=== PATIENT | male | born 2000 | race Caucasian/White ===

== ENCOUNTER 2018-07-11 13:50 | Emergency (ER) | payer OTHER ==
[2018-07-11] MEDS ORDERED: NS(*) 0.9% 1000 ML BAG 1,000 ML IV ONE ×2 (13:51→14:10)
[2018-07-11] MEDS ORDERED: KETAMINE HCL 500 MG/5 ML VIAL IVP ONE ×3 (13:55→15:05)
--- NOTE | 2018-07-11 14:31 | ER Report ---
History and Physical Time Seen By MD: 14:30 Hx. of Stated Complaint: left arm pain HPI/ROS CHIEF COMPLAINT: Left humerus fracture HISTORY OF PRESENT ILLNESS: Patient is a 17-year-old male here with complaints of pain after a fall while snowboarding of his left mid humerus. Patient is neurovascularly intact in distal extremity. Patient was brought in by EMS having received fentanyl, ketamine, Versed. Patient has no other injuries at this time, denies loss of consciousness. Patient is afebrile, hemodynamically stable REVIEW OF SYSTEMS: Constitutional: No fever, no chills. Eyes: No discharge. ENT: No sore throat. Cardiovascular: No chest pain, no palpitations. Respiratory: No cough, no shortness of breath. Gastrointestinal: No abdominal pain, no vomiting. Genitourinary: No hematuria. Musculoskeletal: + Mid humerus left upper extremity deformity Skin: No rashes. Capillary refill less than 2 seconds in distal extremity Neurological: Neurovascular exam intact distal to the injury site Allergies: Coded Allergies: No Known Allergies (Verified Allergy, Unknown, 07/11/18) Home Meds Active Scripts Ondansetron 4 Mg Odt (ONDANSETRON 4 MG ODT) 4 Mg Tab.rapdis, 4 MG PO ONCE, #30 TAB Prov:YANET MARTINI S DO 07/11/18 Oxycodone Hcl/Acet 5/325 Mg (ENDOCET 5-325 TABLET) 1 Each Tablet, 1 EACH PO Q4- 6H PRN for PAIN, #20 TAB Prov:YANET MARTINI DO 07/11/18 Constitutional Vital Sign - Last 24 Hours 07/11/18 07/11/18 07/11/18 07/11/18 13:50 13:53 14:00 14:05 Temp 98.6 Pulse 88 87 89 Resp 11 12 14 B/P (MAP) 148/89 144/86 (105) Pulse Ox 92 96 92 O2 Delivery Nasal Cannula Nasal Cannula Nasal Cannula O2 Flow Rate 2 2 07/11/18 07/11/18 07/11/18 07/11/18 14:15 14:20 14:25 14:30 Pulse 106 89 Resp 7 15 B/P (MAP) 142/80 (100) 148/79 (102) 152/81 (104) 149/81 (103) Pulse Ox 95 95 O2 Delivery Nasal Cannula Nasal Cannula O2 Flow Rate 2 2 07/11/18 07/11/18 07/11/18 07/11/18 14:45 14:50 14:55 15:00 Pulse 91 89 Resp 20 15 B/P (MAP) 147/77 (100) 144/74 (97) Pulse Ox 97 95 O2 Delivery Nasal Cannula O2 Flow Rate 2 07/11/18 07/11/18 07/11/18 07/11/18 15:05 15:15 15:20 15:30 Pulse 111 112 Resp 10 23 B/P (MAP) 155/91 (112) 156/92 (113) Pulse Ox 93 96 O2 Delivery Nasal Cannula Nasal Cannula O2 Flow Rate 2 2 07/11/18 15:35 Pulse 105 Resp 11 Pulse Ox 93 O2 Delivery Nasal Cannula O2 Flow Rate 2 Physical Exam General Appearance: The patient is alert, has no immediate need for airway protection and no signs of toxicity. Moderate distress secondary to pain Eyes: Pupils equal and round no pallor or injection. ENT, Mouth: Mucous membranes are moist. Respiratory: There are no retractions, lungs are clear to auscultation. Cardiovascular: Regular rate and rhythm. Gastrointestinal: Abdomen is soft and non tender, no masses, bowel sounds normal. Neurological: Neurovascularly intact distal to the injury site Skin: Capillary refill less than 2 seconds in the left upper distal extremity Musculoskeletal: Neck is supple non tender. Obvious deformity of mid humerus of the left upper extremity. DIFFERENTIAL DIAGNOSIS: After history and physical exam differential diagnosis was considered for fracture, dislocation, contusion Medical Decision Making EKG/Imaging Imaging Please see radiology report ED Course/Re-evaluation ED Course Patient is a 17-year-old male here with complaints of left upper extremity midhumerus deformity after a snowboarding accident. Patient is neurovascularly intact distal to the injury site with capillary refill less than 2 seconds. X- ray imaging confirmed a midhumerus displaced fracture. I discussed the patient with orthopedics community recreation coordinator Dr. Whatley who recommended stabilizing fracture and close follow-up on Thursday for definitive repair. I discussed these findings with the patient and the patient was placed in a posterior Ortho-Glass splint with sling. Patient requested transfer to a [facility] facility specifically [place] after I discussed the patient with [facility] for transfer. I discussed the patient with Dr. Ibanez who is the trauma doctor community recreation coordinator who [place] [facility] [place]. Patient declined ambulance transfer and opted for personal vehicle transfer. Patient was neurovascularly intact prior to discharge. Decision to Disposition Date: Jul 11, 2018 Decision to Disposition Time: 14:46 Depart Departure Latest Vital Signs Vital Signs Date Time Temp Pulse Resp B/P (MAP) Pulse Ox O2 Delivery O2 Flow Rate FiO2 07/11/18 15:35 105 11 93 Nasal Cannula 2 07/11/18 15:30 156/92 (113) 07/11/18 13:53 98.6 Impression: Primary Impression: Humerus fracture Condition: Improved Disposition: HOME OR SELF-CARE New Scripts Ondansetron 4 Mg Odt (ONDANSETRON 4 MG ODT) 4 Mg Tab.rapdis 4 MG PO ONCE, #30 TAB Prov: YANET MARTINI DO 07/11/18 Oxycodone Hcl/Acet 5/325 Mg (ENDOCET 5-325 TABLET) 1 Each Tablet 1 EACH PO Q4-6H PRN for PAIN, #20 TAB Prov: YANET MARTINI DO 07/11/18 Patient Instructions: Arm Fracture in Adults (DC) Additional Instructions: You were identified to have a midshaft humerus fracture. Please keep the fracture in a sling and follow up with orthopedic surgery and trauma at [facility]. Dr. Ibanez was the accepting physician. Please proceed to the Emergency Department. YANET MARTINI DO Jul 11, 2018 14:31
[2018-07-11] MEDS ORDERED: ONDA4TAB9 PO (14:51)
[2018-07-11] MEDS ORDERED: OXYC-854 PO (14:51)
[2018-07-11] MEDS ORDERED: HYDROMORPHONE HCL 1 MG/ML SYRINGE ONE (15:05)
[2018-07-11] MEDS ORDERED: HYDROMORPHONE HCL 1 MG/ML SYRINGE IVP ONE ×3 (15:05→16:25)
[2018-07-11] MEDS ORDERED: oxyCODONE/ACETAMIN 5/325MG TH 2 TAB/BOTTLE PO ONE (15:30)
[2018-07-11] MEDS ORDERED: ONDANSETRON 4 MG ODT TH SL ONE (15:30)
[2018-07-11] MEDS ORDERED: DIAZEPAM 50 MG/10 ML MDV IVP ONE (16:25)
[2018-07-11 16:45] VITALS: BP 143/82
--- NOTE | 2018-07-26 10:37 | RADIOLOGY IMAGING REPORT ---
FACILITY: [facility] [place] PATIENT NAME: Nathan Hernandez : 2000 MR: [id number] V: [id number] EXAM DATE: ORDERING PHYSICIAN: YANET MARTINI TECHNOLOGIST: Location: [facility] Patient: Nathan Hernandez : 2000 Visit/Account:[id number] Date of Sevice: 07/11/2018 HUMERUS LEFT HISTORY: Snowboarding injury COMPARISON: None FINDINGS: Displaced, angulated fracture of the left midhumerus. IMPRESSION: 1. Displaced, angulated fracture of the left mid humerus. Report Dictated By: Chapincito Vicente MD at 07/11/2018 2:34 PM Report E-Signed By: Chapincito Vicente MD at 07/11/2018 2:34 PM WSN:[id number]
--- NOTE | 2018-07-26 10:37 | RADIOLOGY IMAGING REPORT ---
[place] [facility] [place] NAME: Nathan Hernandez : 2000 MR: [id number] V: [id number] EXAM DATE: ORDERING PHYSICIAN: YANET MARTINI TECHNOLOGIST: Location: [facility] [place] Patient: Nathan Hernandez : 2000 Visit/Account:[id number] Date of Sevice: 07/11/2018 SHOULDER MIN 2 VIEWS LEFT HISTORY: Snowboarding injury COMPARISON: None FINDINGS: Left shoulder: Displaced, angulated fracture of the left mid humeral shaft. Glenohumeral joint is nor mal. Mild elevation of the clavicle in relation to the acromium.. IMPRESSION: 1. Displaced/angulated fracture of the left mid humerus. 2. Mild elevation of the clavicle in relation to the acromium which may represent AC joint ligamentou s injury. Report Dictated By: Chapincito Vicente MD at 07/11/2018 2:32 PM Report E-Signed By: Chapincito Vicente MD at 07/11/2018 2:33 PM WSN:[id number]
== END 2018-07-11 17:05 | disposition home or self-care (01) ==
LOC: ER 13:54
DX: S42.302A Unspecified fracture of shaft of humerus, left arm, initial encounter for closed fracture (principal); Y93.23 Activity, snow (alpine) (downhill) skiing, snowboarding, sledding, tobogganing and snow tubing
CPT/HCPCS: 29105; 73030; 73060; 96361; 96374; 96375; 96376; 99284; J1170; J3360; J7030; S0119

== ENCOUNTER → 2018-07-11 | Outpatient (CLI) | payer OTHER ==
[~2018-07-11] MED LIST: ONDA4TAB9 PO; OXYC-854 PO
== END ==
LOC: AMB 12:35
PROVIDERS: ATTEND Nurse Practitioner
DX: M79.622 Pain in left upper arm (principal); W00.0XXA Fall on same level due to ice and snow, initial encounter; Y93.23 Activity, snow (alpine) (downhill) skiing, snowboarding, sledding, tobogganing and snow tubing; Y92.838 Other recreation area as the place of occurrence of the external cause
CPT/HCPCS: A0425; A0433